=== PATIENT | female | born 1980 | race Caucasian/White ===

== ENCOUNTER 2017-01-05 06:45 | Inpatient (IN) | payer OTHER ==
[2017-01-05] MEDS ORDERED: METHYLERGONOVINE 0.2 MG/ML 1 ML AMP IM PRN (06:50)
[2017-01-05] MEDS ORDERED: TERBUTALINE 1 MG/ML VIAL SQ PRN (06:50)
[2017-01-05] MEDS ORDERED: CARBOPROST TROMETHAMINE 250 MCG/ML 1 ML AMP IM PRN (06:50)
[2017-01-05] MEDS ORDERED: LIDOCAINE 1% (PF) 10 MG/ML (30 ML SDV) SQ PRN (06:50)
[2017-01-05] MEDS ORDERED: OXYTOCIN 10 UNIT/ML 1 ML VIAL IM PRN (06:50)
[2017-01-05] MEDS: LACTATED RINGERS 1,000 ML IV SCH ×2 (06:56→07:44)
[2017-01-05] MEDS ORDERED: OXYTOCIN 20 UNITS/1000 ML NS 1,000 ML IV SCH (07:00)
[2017-01-05 07:07] VITALS: BMI 24.1
[2017-01-05 07:09] LABS: Basophils % (A) 0 %; CH 30.8; CHCM 34.6; Eosinophils # (A) 0.3 k/uL (0-0.7); Eosinophils % (A) 1 %; HCT 37.9 % (34.0-46.0); HDW 2.68; HGB 12.7 gm/dL (11.4-16.0); Luc # (Auto) 0.15; Luc % (Auto) 1; Lymphocytes # (A) 1.3 k/uL (1.0-4.8); Lymphocytes % (A) 7 %; MCH 29.9 pg (25.0-35.0); MCHC 33.5 g/dL (31.0-37.0); MCV 89.4 fL (80.0-100.0); Mean Platelet Volume 8.4; Monocytes # (A) 0.4 k/uL (0-1.0); Monocytes % (A) 2 %; Neutrophils # (A) 17.3 k/uL (1.3-7.7); Neutrophils % (A) 89 %; RBC 4.24 m/uL (3.80-5.40); RDW 13.1 % (11.5-15.5); WBC 19.4 k/uL (3.8-10.6); WBC (Perox) 20.81
[2017-01-05] MEDS ORDERED: BUPIVACAINE (PF) 0.25% 30 ML VIAL ONE (07:22)
[2017-01-05] MEDS ORDERED: SODIUM CHLORIDE 0.9% 100 ML BAG ONE (07:22)
[2017-01-05] MEDS ORDERED: fentaNYL (PF) 50 MCG/ML 5 ML AMP ONE (07:22)
--- NOTE | 2017-01-05 07:25 | P.HPOB ---
History of Present Illness H&P Date: 01/05/17 Chief Complaint: Strong, regular contractions. Bloody show. This is a 36-year-old female 2 para 0010 EDC 01/16/2017 at 38-3/7 weeks ' gestation. Patient presents with strong, regular uterine contractions from home. Fetus is been active throughout the . Past medical history is essentially negative. Past surgical history D&C for miscarriage 2010, LEEP procedure of the cervix 2002, left breast fibroadenoma removed year 1999. Current medications vitamins daily. ALLERGIES none known. Family history significant for colon cancer, and diabetes. Social history patient is , she is never been a smoker, she denies alcohol or drug use. history blood type is A+, rubella status nonimmune. VDRL testing, urine culture, hepatitis B surface antigen, HIV testing, group B strep cultures all negative. One-hour Glucola 104. Ultrasounds have revealed intrauterine growth restriction, 4th percentile, followed by twice weekly NSTs, weekly S/D ratio, and weekly MATHIEU, all signs reassuring. On exam this is a pleasant white female, 5 foot 7 inches, 154 pounds, blood pressure 118/74. The general physical exam is within normal limits. The chest is clear in all robles. Extremities are negative for edema. Cervix is 4 cm dilated, 90% effaced, -1 station, vertex presentation. Artificial amniorrhexis reveals clear fluid. heart tones are in the 140s with frequent accelerations, consistent with reactive NST. Impression: 38-3/7 weeks intrauterine , IUGR, advanced maternal age, in active spontaneous labor. Plan: Close maternal and surveillance. Patient requesting epidural, anesthesia staff aware. Anticipate normal spontaneous vaginal delivery. Past Medical History Past Medical History: No Reported History History of Any Multi-Drug Resistant Organisms: None Reported Past Surgical History: Breast Surgery Additional Past Surgical History / Comment(s): left biopsy Past Anesthesia/Blood Transfusion Reactions: No Reported Reaction Past Psychological History: No Psychological Hx Reported Smoking Status: Never smoker Past Alcohol Use History: None Reported Past Drug Use History: None Reported - Past Family History Mother Family Medical History: No Reported History Medications and Allergies Home Medications Medication Instructions Recorded Confirmed Type No Known Home Medications [No 01/05/17 01/05/17 History Known Home Medications] Allergies Allergy/AdvReac Type Severity Reaction Status Date / Time No Known Allergies Allergy Verified 01/05/17 06:50 Exam - Vital Signs Vital signs: Vital Signs Temp Pulse Pulse Resp BP BP Pulse Ox 01/05/17 06:58 97.4 F L 95 20 118/74 100 01/05/17 06:55 97.4 F L 95 16 118/74 Intake and Output 01/04/17 01/05/17 01/05/17 22:59 06:59 14:59 Other: Weight 69.853 kg
[2017-01-05] MEDS ORDERED: BUPIVACAINE (PF) 0.25% 25 ML, fentaNYL (PF) 200 MCG in SODIUM CHLORIDE 0.9% 71 ML EPIDURAL ONE (08:40)
[2017-01-05] MEDS ORDERED: diphenhydrAMINE ELIXIR 25 MG/10 ML CUP PO PRN (12:25)
[2017-01-05] MEDS ORDERED: diphenhydrAMINE 50 MG CAP PO PRN (12:25)
[2017-01-05] MEDS ORDERED: BENZOCAINE/MENTHOL SPRAY 1 GM/SPRAY AEROSOL TOPICAL PRN (12:25)
[2017-01-05] MEDS ORDERED: SIMETHICONE 80 MG CHEWABLE PO PRN (12:25)
[2017-01-05] MEDS ORDERED: ZOLPIDEM 5 MG TAB PO PRN (12:25)
[2017-01-05] MEDS ORDERED: LANOLIN CREAM 5 GM TUBE TOPICAL PRN (12:25)
[2017-01-05] MEDS ORDERED: Acetaminophen-Codeine 300-30mg TAB PO PRN (12:25)
[2017-01-05] MEDS ORDERED: HYDROCORTISONE 2.5% RECTAL CREAM 30 GM TUBE RECTAL PRN (12:25)
[2017-01-05] MEDS ORDERED: diphenhydrAMINE 50 MG/ML 1 ML VIAL IVP PRN ×2 (12:25)
[2017-01-05] MEDS ORDERED: IBUPROFEN 600 MG TAB PO PRN (12:25)
[2017-01-05] MEDS ORDERED: diphenhydrAMINE 25 MG CAP PO PRN (12:25)
[2017-01-05] MEDS ORDERED: WITCH HAZEL 1 EACH MED..PAD TOPICAL PRN (12:25)
[2017-01-05] MEDS ORDERED: ACETAMINOPHEN TAB 325 MG TAB PO PRN (12:25)
[2017-01-05] MEDS ORDERED: MEASLES-MUMPS-RUBELLA VACC/PF 12,500 UNIT/0.5 ML VIAL SQ ONE (12:25)
--- NOTE | 2017-01-05 12:25 | P.PROBDLV ---
Vaginal Delivery Note - . Vaginal Delivery Note: This is a 36-year-old white female 2 para 0010 EDC 01/16/2017 at 38-3/7 weeks' gestation. Patient presented to labor and delivery with strong regular uterine contractions and positive bloody show. Fetus is active throughout the . is Located by intrauterine growth restriction, estimated weight 4th percentile. All signs reassuring with testing. Rubella status nonimmune. Please see my dictated history and physical for details. Artificial amniorrhexis revealed clear fluid. Epidural was requested and this was placed without difficulty. Oxytocin augmentation was given. Patient progressed well through the first stage of labor and was judged to be completely dilated at 1201. Perineal body was prepped and draped in usual sterile fashion. With excellent maternal expulsive efforts the infant's head crowned occiput anterior and restituted accordingly. There was a nuchal cord 1 that was easily reduced on the perineal body. The left or anterior shoulder was delivered from underneath the pubic symphysis at which time the oropharynx, nasopharynx, and external nares were bulb suctioned on the perineal body. She was officially delivered of a liveborn female at 1211 hrs. Umbilical cord was doubly clamped and ligated, she was handed to waiting nurses for evaluation where scores of 9 and 9 at one and 5 minutes respectively were given. Uterus was massaged, placentas delivered spontaneously, it was inspected and noted to be intact with trivascular cord at 1214 hrs. The uterus was massaged. In special cervix, vagina, perineum and periurethral areas revealed no lacerations and no defects. Estimated blood loss 300 mL's. All sponge needle and enhancement counts are correct at the end of the procedure. Patient and her family are allowed to begin the bonding experience in the LDR. weight not available at time of this dictation.
[2017-01-05] MEDS ORDERED: SENNOSIDES-DOCUSATE SODIUM 1 EACH TAB PO SCH (20:00)
[2017-01-06] MEDS: LACTATED RINGERS 1,000 ML IV SCH (00:59)
[2017-01-06 05:25] VITALS: RESP 16
--- NOTE | 2017-01-06 07:38 | P.DS ---
Providers Date of admission: 01/05/17 06:52 Expected date of discharge: 01/06/17 Attending physician: Ana Yousif Primary care physician: Stated None Hospital Course: This is a 36-year-old white female 2 para 0010 at 38-3/7 weeks. Patient presented in active spontaneous labor. was essentially unremarkable, rubella status nonimmune. Known intrauterine growth restriction was followed in the office carefully, all signs reassuring, please see my dictated history and physical for details. This morning the patient is doing well. She underwent a spontaneous vaginal delivery and gave to a liveborn female with scores of 9 and 9 at one and 5 minutes respectively. weighed 2525 g or 5 lbs. 9 oz. Her no sutures needed, estimated blood loss 300 mL's. Please see dictated delivery note for details. Breast-feeding is going well, prescription for breast pump is provided. Patient will follow-up with me in the office in 6 weeks. I have reminded her to continue taking her vitamin daily, to use [id number] ibuprofen products as needed for pain. She will call me with any fevers shakes or chills, foul smelling or copious lochia, with the passage of large blood clots, with any pain not alleviated by [id number] products or indeed with any concerns. Baby will follow up with scale mechanic as recommended. Patient Condition at Discharge: Good Plan - Discharge Summary Discharge Medication List No Known Home Medications [No Known Home Medications] 01/05/17 [History] Follow up Appointment(s)/Referral(s): Ana Yousif MD [STAFF PHYSICIAN] - 6 Weeks Discharge Disposition: HOME SELF-CARE
[2017-01-06 07:48] VITALS: BP 115/70; PULSE 73; TEMP 98.2
== END 2017-01-06 13:15 | disposition home or self-care (01) | DRG 775 ==
LOC: FBPOP 06:45 → 4FBP 06:52
PROVIDERS: ADMIT Obstetrics & Gynecology; ATTEND Obstetrics & Gynecology
PROC: 10E0XZZ Delivery of Products of Conception, External Approach (ICD-10-PCS; principal; 2017-01-05)
PROC: 3E0134Z Introduction of Serum, Toxoid and Vaccine into Subcutaneous Tissue, Percutaneous Approach (ICD-10-PCS; 2017-01-05)
PROC: 00HU33Z Insertion of Infusion Device into Spinal Canal, Percutaneous Approach (ICD-10-PCS; 2017-01-05)
PROC: 3E0R3CZ (ICD-10-PCS; 2017-01-05)
DX: O36.5930 Maternal care for other known or suspected poor fetal growth, third trimester, not applicable or unspecified (principal); O69.81X0 Labor and delivery complicated by cord around neck, without compression, not applicable or unspecified; Z37.0 Single live birth; Z3A.38 38 weeks gestation of pregnancy; Z23 Encounter for immunization
CPT/HCPCS: 85025; 88307